=== PATIENT | female | born 1995 | race Caucasian/White ===

== ENCOUNTER 2019-09-16 13:29 | Outpatient (CLI) | payer BC ==
--- NOTE | 2019-09-16 13:49 | RAD ---
Exam: 2 views right calcaneus HISTORY: Pain FINDINGS: No significant bony outgrowth. No fracture, cortical irregularity or periosteal reaction IMPRESSION: No acute abnormality.
== END 2019-09-16 13:30 | disposition home or self-care (01) ==
LOC: BICRAD 13:29
PROVIDERS: ATTEND Podiatrist
DX: M72.2 Plantar fascial fibromatosis (principal); M79.4 Hypertrophy of (infrapatellar) fat pad

== ENCOUNTER 2019-10-22 11:44 | Outpatient (CLI) | payer BC ==
--- NOTE | 2019-10-22 14:14 | RAD ---
KUB: 10/22/19 COMPARISON: 06/12/12 HISTORY: Kidney stones. FINDINGS: Single view of the abdomen shows nondistended, nonobstructed bowel gas pattern. Tiny calcifications p roject over the left renal shadow. No calcifications are seen along the course of the ureters. IMPRESSION: Tiny left renal calcifications. POS: [facility]
== END 2019-10-22 11:45 | disposition home or self-care (01) ==
LOC: BICRAD 11:44
PROVIDERS: ATTEND Emergency Medicine
DX: N20.0 Calculus of kidney (principal); N28.89 Other specified disorders of kidney and ureter
CPT/HCPCS: 74018